=== PATIENT | female | born 1970 | race African-American/Black ===

== ENCOUNTER → 2023-01-01 12:25 | Outpatient (CLI) | payer BC, SELFPAY ==
--- NOTE | ~2023-01-01 | MR_ITS ---
MRI of the right ankle Clinical history: Plantar fasciitis Technique: Coronal proton-density and proton-density fat-sat images, axial proton-density and proton- density fat-sat images, and sagittal proton-density and proton-density fat-sat images were acquired. Findings: Syndesmotic ligament are intact. Anterior and posterior talofibular ligaments, and calcaneo fibular ligament are intact. Deltoid ligament is intact. Medial flexor tendons, peroneal tendons, anterior extensor tendons, and Achilles tendon are intact. There is no osteochondral lesion of the talar dome. Bone marrow signals are unremarkable. Joint space s are preserved. Small plantar calcaneal spur present. Questionable minimal edematous change about the origin of the p lantar fascia. Normal signal preserved in the sinus Tarsi. Impression: Questionable minimal plantar fasciitis, as noted above. Reviewed, dictated and finalized at [facility]. GER GOLF Impression: Questionable minimal plantar fasciitis, as noted above.
== END ==
PROVIDERS: PCP Family Medicine
DX: M72.2 Plantar fascial fibromatosis (principal)
CPT/HCPCS: 73721